=== PATIENT | female | born 1985 | race Caucasian/White ===

== ENCOUNTER 2017-11-14 10:24 | Outpatient (CLI) | payer BC ==
--- NOTE | 2017-11-14 10:52 | RAD ---
CERVICAL SPINE SERIES FOUR VIEWS: History: Neck pain. FINDINGS: The vertebral bodies are normal in height. Disc spaces appear well preserved. No soft tissue swelling . No significant arthritic change. Minimal facet hypertrophic change is noted. IMPRESSION: Unremarkable cervical spine series. POS: [facility]
--- NOTE | 2017-11-14 11:37 | RAD ---
LUMBAR SPINE SERIES THREE VIEWS: History: Low back pain. FINDINGS: The vertebral bodies are normal in height. Disc spaces appear well preserved. Pedicles are intact. IMPRESSION: Unremarkable lumbar spine series. POS: [facility]
--- NOTE | 2017-11-14 11:48 | RAD ---
BILATERAL HIPS TWO VIEWS: History: Hip pain. FINDINGS: The joint spaces appear well preserved. I do not see any evidence of any significant arthritic change . No fracture or other findings. IMPRESSION: Essentially unremarkable bilateral hips. POS: [facility]
== END 2017-11-14 10:25 | disposition home or self-care (01) ==
LOC: RAD 10:24
PROVIDERS: ATTEND Chiropractor
DX: M54.2 Cervicalgia (principal); M25.551 Pain in right hip; M25.552 Pain in left hip; M54.5 Low back pain
CPT/HCPCS: 72040; 72100; 73521

== ENCOUNTER 2018-07-26 12:38 | Outpatient (CLI) | payer BC ==
--- NOTE | 2018-07-26 17:56 | RAD ---
LUMBAR SPINE THREE VIEWS: 07/26/18 HISTORY: 33-year-old female with history of lumbar disc herniation, left hip pain with difficulty walking. COMPARISON: 11/14/17. FINDINGS: Exam includes neutral, flexion and extension standing upright lateral views. No significant malalignm ent. No evidence for anterior or retrolisthesis. No abnormal translation between flexion and extensio n. IMPRESSION: Very minute spondylosis. No abnormal translation between flexion and extension. POS: [facility]
--- NOTE | 2018-07-26 18:20 | MRI ---
LUMBAR SPINE MRI WITHOUT IV CONTRAST: 07/26/18 HISTORY: 33-year-old female with history of lumbar disc herniation, left hip pain with difficulty walking and sitting for long periods of time. Multiplanar and multisequence MRI examination of the lumbar spine is performed. Conus medullaris sanam on is unremarkable terminating at L1. The lumbar discs appear within normal limits. No evidence for disc herniation or significant canal, l ateral recess, or foraminal stenosis. No abnormal marrow signal. IMPRESSION: Unremarkable lumbar spine MRI. No evidence for significant disc herniation, canal, lateral recess, or foraminal stenosis, abnormal marrow signal, or other significant acute process. POS: [facility]
== END 2018-07-26 12:39 | disposition home or self-care (01) ==
LOC: TBSIIMAG 12:38
PROVIDERS: ATTEND Anesthesiology Pain Medicine
DX: M51.26 Other intervertebral disc displacement, lumbar region (principal); M47.896 Other spondylosis, lumbar region
CPT/HCPCS: 72100; 72148

== ENCOUNTER 2019-03-14 14:28 | Outpatient (CLI) | payer BC ==
--- NOTE | 2019-03-14 16:16 | MRI ---
MRI OF THE LUMBAR SPINE WITHOUT CONTRAST: 03/14/19 HISTORY: Lumbar radiculitis, lower to middle back pain radiating to the lower extremities, greater on the righ t side. COMPARISON: 07/26/18. FINDINGS: The vertebral body heights and marrow signal is maintained. Intervertebral disc heights and signal ar e also maintained. The conus medullaris ends at L1. No evidence of focal disc herniation, central canal,lateral recess or neural foraminal stenosis is se en. The paraspinal musculature is normal. IMPRESSION: Normal exam. POS: [facility]
--- NOTE | 2019-03-17 09:43 | MRI ---
MRI PELVIS WITHOUT CONTRAST: HISTORY: M25.551, chronic right hip pain. COMPARISON: None. FINDINGS: BONES: No marrow infiltrative process. There is some subtle edema of the right posterior femoral head and n cece junction. There is a very small osteophyte formation of the posterior femoral head and neck junc tion. There is abnormal fatty infiltration of the posterior acetabulum with some sclerosis as well a s ossification of the posterior capsule of the posterior os acetabulum. CARTILAGE: The cartilage appears to be intact. TENDONS: Iliopsoas tendon is intact. Hamstring tendon is intact. The adductor tendons are intact. INTRAPELVIC SOFT TISSUES: Normal. LABRUM: Intact. 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 POS: [facility]
== END 2019-03-14 14:29 | disposition home or self-care (01) ==
LOC: BICMRI 14:28
PROVIDERS: ATTEND Physician Assistant
DX: M25.551 Pain in right hip (principal); M51.26 Other intervertebral disc displacement, lumbar region; M54.16 Radiculopathy, lumbar region; M25.751 Osteophyte, right hip
CPT/HCPCS: 72148; 72195

== ENCOUNTER 2019-04-09 14:33 | Outpatient (CLI) | payer BC ==
--- NOTE | 2019-04-09 15:54 | MRI ---
MRI Cervical spine without contrast: HISTORY: Neck Pain COMPARISON: None available FINDINGS: The craniocervical junction is unremarkable. No significant cord signal abnormality. Marrow signal intensity is normal C1-2:No significant stenosis. C2-3:No significant stenosis. C3-4:No significant stenosis. C4-5:Right subarticular disc protrusion with mild right ventral hemicord effacement and mild right ne ural foraminal narrowing. No significant left foraminal stenosis C5-6: Left paracentral disc protrusion, superimposed upon a broad based disc bulge with mild effaceme nt of ventral thecal sac and slight ventral cord flattening. Mild bilateral neural foraminal narrowing. C6-7: Mild disc bulge with effacement of ventral thecal sac. No high-grade foraminal stenosis C7-T1:No significant stenosis. Incidental note of disc osteophyte formation of the partially imaged upper thoracic spine effacing ve ntral aspect of the vertebral canal contents. IMPRESSION: Multilevel disc degenerative disease of the cervical spine, most pronounced at the C4-5 level.
== END 2019-04-09 14:34 | disposition home or self-care (01) ==
LOC: BICMRI 14:33
PROVIDERS: ATTEND Orthopaedic Surgery
DX: G57.92 Unspecified mononeuropathy of left lower limb (principal); M50.321 Other cervical disc degeneration at C4-C5 level
CPT/HCPCS: 72141

== ENCOUNTER 2020-06-09 10:23 | Emergency (ER) | payer BC, OTHER ==
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
[2020-06-09] MEDS ORDERED: Ibuprofen 200 MG TAB ONE (12:23)
[2020-06-09] MEDS ORDERED: HYDROcodone/Acetaminophen 5/325 mg Tablet ONE (12:23)
== END 2020-06-09 12:42 | disposition home or self-care (01) ==
LOC: ERS 10:23
DX: S90.32XA Contusion of left foot, initial encounter (principal); F17.210 Nicotine dependence, cigarettes, uncomplicated; F32.9 Major depressive disorder, single episode, unspecified; Z79.899 Other long term (current) drug therapy; W20.8XXA Other cause of strike by thrown, projected or falling object, initial encounter